=== PATIENT | female | born 1950 | race Caucasian/White ===

== ENCOUNTER → 2016-06-04 | Outpatient (CLI) | payer MEDICARE, BC ==
[~2016-06-04] MED LIST: ASPIRIN E.C. 8181 M1 PO; FISH OIL 1000MG1 CAP PO; FOLGARD RX 2.21 TAB PO; IMDUR 60MG60 MG/TAB PO; LISINOPRIL20 MG PO; LOVASTATIN40 MG PO; NASONEX0.05 MG/AC NS; NIACIN500 M3 PO; OMEPRAZOLE40 MG PO; PRECOSE50 M1 PO; PROPRANOLOL ER80 MG PO; VITAMIN E100 I3 PO
== END ==
LOC: LAB 08:12
DX: I10 Essential (primary) hypertension (principal); I35.1 Nonrheumatic aortic (valve) insufficiency; E78.5 Hyperlipidemia, unspecified

== ENCOUNTER → 2016-06-17 | Outpatient (CLI) | payer MEDICARE, BC | LOC: MAMMO 08:25 | DX: Z12.31 Encounter for screening mammogram for malignant neoplasm of breast (principal) | CPT/HCPCS: G0202 ==

== ENCOUNTER → 2016-11-10 | Outpatient (CLI) | payer MEDICARE, BC ==
[2013-09-23 16:30] VITALS: BP 148/72
== END ==
LOC: RAD 12:53
DX: N94.10 Unspecified dyspareunia (principal); Z90.710 Acquired absence of both cervix and uterus; Z90.722 Acquired absence of ovaries, bilateral